=== PATIENT | male | born 1990 | race Caucasian/White ===

== ENCOUNTER 2024-12-29 00:25 | Emergency (ER) | payer OTHER, SELFPAY ==
[2024-12-29 00:28] VITALS: BP 154/88; PULSE 90; RESP 18; TEMP 36.4; O2SAT 100; BMI 34.2
--- NOTE | 2024-12-29 00:30 | EX.ED.UPPERE ---
HPI History of Present Illness Chief Complaint: Laceration Informant: patient Narrative Narrative: Patient is a 34 year old right hand dominant male with history of hypertension and hyperlipidemia presenting with laceration to the left third finger. Patient was using a pocket knife which he had recently had sharpened to open a box and excellently cut distal aspect of his left third finger. Denies any numbness or tingling. It was bleeding quite a bit but EMS was able to get it to stop. [place] apparently was intoxicated in a verbal argument with his significant other tonight by EMS report so the police were called however per EMS he is not in any trouble with police. Patient has no other complaints or concerns at this time. He denies taking any blood thinners. No other injuries or complaints reported. Tetanus Immunization: <5 years [facility] Medical History Hyperlipemia Hypertension Allergy/AdvReac Type Severity Reaction Status Date / Time No Known Allergies Allergy Verified 12/29/24 00:34 Surgical History Hx of right knee surgery Social History Smoking Status: Former smoker ROS ROS ED Constitutional Constitutional ED: Denies chills or fever(s) Musculoskeletal Musculoskeletal: Reports other Details: Left third finger pain Integumentary Reports other Details: Laceration to left third finger Neurologic Neurologic: Denies paresthesias or weakness Hematologic/Lymphatic Hematologic/Lymphatic: Denies easy bleeding or easy bruising EXAM Physical Exam Const Vital Signs: 12/29/24 00:28 Temperature 97.5 F L Temperature Source Temporal Pulse Rate 90 Respiratory Rate 18 Blood Pressure 154/88 H Blood Pressure Mean 110 Pulse Ox 100 Oxygen Delivery Method Room Air Positive well nourished and well developed General Appearance ED: well developed and NAD Chest Wall inspection of chest normal Resp normal respiratory effort and clear to auscultation bilaterally Cardio regular rate and regular rhythm Extremity Extremity Narrative: Laceration of the distal aspect of the left third finger. Normal range of motion with flexion extension. No obvious tendinous injury. No deformity of the bones. No tenderness over the joints. Neuro oriented x3, moves all extremities, no focal motor deficits and no sensory deficits noted Neuro Narrative: Sensation intact to light touch of the distal left third finger specifically Sensorium / Orientation: alert Psych mental status grossly normal Skin Skin Narrative: 3 cm linear full-thickness laceration to the lateral palmar aspect of the distal phalanges of the left third finger, extending across the DIP crease. No active bleeding at this time. MDM MDM MDM Narrative Medical decision making narrative: Patient evaluated for laceration to left third finger. Neurovascularly intact low suspicion for tendinous injury. X-rays obtained to look for signs of any underlying fracture. Lower suspicion for foreign body. X-ray viewed by myself as well as radiology does not show any bony injury or acute abnormality besides soft tissue injury. Laceration repair performed. See procedure note. Patient initially had what appeared to be a vagal episode when I was cleaned out the wound. He was laid down, give it some time and ice pack with improvement. Tolerated laceration repair well otherwise. Given wound care precautions and return precautions. As patient is been drinking today. He is mildly intoxicated we will allow to rest here until he can find a sober ride or is clinically sober and can be discharged on his own accord. Procedures Lacerations finger: Length: 1.18 in Depth: Skin Shape: Linear Irrigated (ml): 500 Number of Sutures/Cuong: 6 Suture Information: Ethilon, Simple and 4-0 Discharge Plan Triage Chief Complaint: Laceration ED Provider: Anusha Khoury Dx/Rx/DC Orders Clinical Impression: Laceration of left middle finger, Pain of left middle finger Instructions: ED Hand Laceration- All Closures Primary Care Provider: JIMENA MOORE Referrals: JIMENA MOORE CRNP [Primary Care Provider] - Activity Restrictions/Additional Instructions: Alternate ibuprofen and Tylenol for pain. Sutures should be removed in 10 to 14 days. Follow-up with your family doctor for this or return to the emergency room. Print Language: Bruneian Disposition Disposition: Home, Self Care
--- NOTE | 2024-12-29 00:30 | ED.RN ---
PT IS POOR HISTORIAN AND DOES NOT KNOW WHAT MEDICATIONS HE TAKES EVERYDAY. UNABLE TO DO MEDICATION RECONCILIATION AT THIS TIME.
[2024-12-29] MEDS: Lidocaine 1% (20 ml mdv) 20 ML Vial INFILT (00:37)
--- NOTE | 2024-12-29 00:40 | RAD_ITS ---
PROCEDURE: FINGER(S) MIN 2 VIEWS 12/29/2024 REASON FOR EXAM: INJURY/PAIN TECHNIQUE: FINGER(S) MIN 2 VIEWS Laterality: LEFT. COMPARISON: NONE. FINDINGS: Soft tissue edema and swelling overlying the distal phalanx of the 3rd finger. Normal metacarpal head. Normal metacarpophalangeal joint. Normal proximal phalanx. Normal middle phalanx. Normal distal phalanx. Normal proximal interphalangeal joint. Normal distal interphalangeal joint. RAD/Finger(s) Min 2 Views IMPRESSION: Soft tissue edema and swelling/laceration overlying the distal phalanx of the 3 rd finger. Reading Location: [facility]
[2024-12-29 04:27] VITALS: BP 145/89; PULSE 73; RESP 16; O2SAT 97
[2024-12-29 04:29] VITALS: BP 145/89; PULSE 71; RESP 16; TEMP 36.4; O2SAT 98
== END 2024-12-29 06:15 | disposition home or self-care (01) ==
PROVIDERS: Emergency Provider Emergency Medicine; PCP Nurse Practitioner; Visit Provider Emergency Medicine
DX: S61.213A Laceration without foreign body of left middle finger without damage to nail, initial encounter (principal); Z87.891 Personal history of nicotine dependence; I10 Essential (primary) hypertension; E78.5 Hyperlipidemia, unspecified; W26.0XXA Contact with knife, initial encounter
CPT/HCPCS: 12002; 73140; 99285; A4216